=== PATIENT | female | born 1955 | race Hispanic/Latino ===

== ENCOUNTER 2021-12-02 17:08 | Emergency (ER) | payer MEDICARE ==
[~2021-12-02] VITALS: Ht 152.4 cm; Wt 67.9 kg
[2021-12-02] MEDS ORDERED: METFORMIN HCL500 M2 PO (17:48)
[2021-12-02] MEDS ORDERED: LISINOPRIL5 MG PO (17:50)
[2021-12-02] MEDS ORDERED: NORVASC10 MG PO (17:51)
[2021-12-02] MEDS ORDERED: VICTOZA 2-0.6 MG/0.1 SUB-Q (17:51)
[2021-12-02] MEDS ORDERED: NITROFURANTOIN100 M1 PO (17:51)
[2021-12-02] MEDS ORDERED: NOVOLOG100 UNIT/2 SQ (17:52)
[2021-12-02] MEDS ORDERED: LEVEMIR100 UNIT/1 SUB-Q (17:52)
== END 2021-12-02 22:25 | disposition home or self-care (01) ==
LOC: ED 17:08
DX: R31.9 Hematuria, unspecified (principal); I10 Essential (primary) hypertension; E11.9 Type 2 diabetes mellitus without complications; Z79.899 Other long term (current) drug therapy; Z79.84 Long term (current) use of oral hypoglycemic drugs; Z79.4 Long term (current) use of insulin
CPT/HCPCS: 36415; 74177; 80053; 81001; 85025; 85610; 85730; 99284-25